=== PATIENT | male | born 1935 | race Caucasian/White ===

== ENCOUNTER → 2016-09-08 | Outpatient (CLI) | payer OTHER, MEDICARE ==
[2013-09-14 09:56] VITALS: BP 126/77
--- NOTE | 2016-09-08 18:47 | RAD ---
HISTORY: Pain Study: AP and lateral views of the thoracic spine Comparison: 03/12/2011 Findings: There is moderate disc space narrowing throughout with large marginal osteophytes throughout. The ve rtebral body height is well maintained throughout. No fracture or subluxation is seen. The pedicles are intact. The bones are well mineralized. IMPRESSION: Moderate multilevel degenerative disc disease which is unchanged with no acute bony abnormality seen . Reported By:
--- NOTE | 2016-09-08 18:51 | RAD ---
HISTORY: Back pain Study: Lumbar spine series Comparison: None Findings: The lumbar vertebra are well aligned. There is moderate disc space narrowing throughout with large m arginal osteophytes throughout. The vertebral body height is well maintained throughout. There are m oderate sclerotic changes of the facets inferiorly. The pedicles are intact. The bones are well mine ralized. There is moderate calcified plaque throughout the aorta with dilatation of the inferior abd ominal aorta measuring up to 5.6 cm. IMPRESSION: Questionable 5-6 cm atherosclerotic fusiform aneurysm of the infrarenal aorta. Recommend ultrasound or CT correlation. Moderate degenerative disk changes throughout and moderate osteoarthritic changes of the facets . Reported By:
== END ==
LOC: RAD 17:58
PROVIDERS: ATTEND Internal Medicine
DX: M54.6 Pain in thoracic spine (principal); M54.5 Low back pain; M51.34 Other intervertebral disc degeneration, thoracic region
CPT/HCPCS: 72072; 72100

== ENCOUNTER 2016-09-09 13:29 | Inpatient (IN) | payer OTHER, MEDICARE ==
[2016-09-09] MEDS ORDERED: LOPRESSOR TAB 25 MG PO SCH (13:44)
[2016-09-09] MEDS ORDERED: NS 1000 ML 1,000 ML IV SCH (14:00)
[2016-09-09 14:15] LABS: BASOPHILS # (AUTO) 0.1 X10^3/uL (0.0-0.1); BASOPHILS % (AUTO) 0.6 % (0.2-1.0); HEMOGLOBIN 15.1 g/dL (13.5-18.0); LYMPHOCYTES % (AUTO) 5.4 % (21.0-51.0); MEAN CORPUSCULAR HEMOGLOBIN 30.8 pg (27.0-34.0); MEAN CORPUSCULAR HGB CONC 33.6 g/dL (33.0-35.0); MEAN CORPUSCULAR VOLUME 91.7 fL (80.0-100.0); MONOCYTES # (AUTO) 0.8 x10^3/uL (0.3-0.8); MONOCYTES % (AUTO) 4.5 % (0.0-13.0); NEUTROPHILS # (AUTO) 16.1 x10^3/uL (2.2-4.8); NEUTROPHILS % (AUTO) 89.5 % (42.0-75.0); PLATELET COUNT 182 X10^3/uL (150.0-450.0); RED BLOOD COUNT 4.91 X10^6/uL (4.7-6.0); RED CELL DISTRIBUTION WIDTH 13.9 % (11.6-16.5)
[2016-09-09 14:17] VITALS: BMI 25.0
[2016-09-09 14:26] LABS: ALANINE AMINOTRANSFERASE 25 Units/L (12-78); ALBUMIN 3.5 g/dL (3.4-5.0); ALKALINE PHOSPHATASE 89 Units/L (46-116); ASPARTATE AMINO TRANSFERASE 22 Units/L (15-37); BLOOD UREA NITROGEN 20 mg/dL (7-18); CALCIUM 8.2 mg/dL (8.5-10.1); CHLORIDE 103 mmol/L (98-107); COR NA(FOR HYPERGLY) 139 mmol/L (136-145); CREATININE 1.27 mg/dL (0.70-1.30); GLUCOSE 143 mg/dL (65-99); SODIUM 138 mmol/L (136-145); eGFR BLACK RACES > 60 (>60); eGFR NON BLACK RACES 58 (>60)
--- NOTE | 2016-09-09 15:26 | DR.H&P ---
H&P - History & Physical for Day of: H&P Date: 09/09/16 - Chief Complaint Chief Complaint: low back pain, radiating - Allergies Allergies/Adverse Reactions: Allergies Allergy/AdvReac Type Severity Reaction Status Date / Time Hydralazine Allergy Verified 09/09/16 13:54 [From [id number]] Hydrochlorothiazide Allergy Verified 09/09/16 13:54 [From [id number]] Reserpine Allergy Verified 09/09/16 13:54 [From [id number]-[id number]] - History of Present Illness History of Present Illness: PT WAS A DIRECT ADMIT PER DR MEJIA WITH NEW FINDING OF AAA >5CM, NEW FINDING. PT CO SUDDEN ONSET OF LOWER BACK PAIN, NO INJURY. PT WAS SEEN IN OFFICE ONE DAY AGO WITH OP XRAYS OF BACK REVEALING ANEURYSM. CT SCAN ORDERED OF ABDOMEN AND PELVIS CONFIRMING, INFRARENAL AA. PT ADMITTED TO ICU FOR BP CONTROL. DR MEJIA COORDINATING TRANSFER. PT HAS PMH GERD. - Past Medical History Past Medical History: GERD Additional Medical History: LONG HX ALCOHOL CONSUMPTION - Past Surgical History Surgical History: Ortho Surgery, Other (RETINA SURGERY) - Family History Family Medical History: Diabetes Mellitus, [place], Sudden Cardiac , Hypertension - Social History Does patient currently use any type of tobacco product: No Have you used tobacco products in the last 12 months: No Type of Tobacco Use: None Does any household member use tobacco: No Alcohol Use: DAILY Drug Use: None - Medications Home Medications: Biotin [Biotin Maximum Strength] 1 tab PO DAILY 09/09/16 [History Confirmed ] Omeprazole [PRILOSEC 20 MG *] 20 mg PO DAILY 09/09/16 [History Confirmed ] - Review of Systems Constitutional: Other (APPEARS IN PAIN) Eyes: No Symptoms Reported ENT: No Symptoms Reported Respiratory: No Symptoms Reported Cardiovascular: No Symptoms Reported Gastrointestinal: Abdominal Pain (MILD RIGHT FLANK PAIN) Genitourinary: No Symptoms Reported Musculoskeletal: Back Pain Skin: No Symptoms Reported Neurological: No Symptoms Reported - Physical Exam Vital Signs: Temperature 99.3 F Pulse Rate [Apical] 67 Respiratory Rate 25 Blood Pressure [Right Arm] 165/86 O2 Sat by Pulse Oximetry 96 Oriented: Normal Eyes: Normal Ear: Normal Nose: Normal Throat: Normal Respiratory: Clear Throughout Cardiovascular: Normal : Normal Auscultation: Bowel Sounds: Normal Palpation: Normal Tenderness: Normal Skin: Normal Musculoskeletal: Back:Thoracic, Back:Lumbar Affect: Anxious Speech Pattern: Clear, Appropriate - Assessment/Plan (1) Aortic aneurysm without rupture Qualifiers: Aortic location: A Status: Acute Plan: ADMIT, ICU, BP CONTROL, BB. CARDIAC MONITORING, CXR. DR MEJIA COORDINATING PLAN FOR CARLENEKINGA (2) GERD (gastroesophageal reflux disease) Qualifiers: Esophagitis presence: E Status: Acute Plan: PROTONIX 40 IV (3) Acute lumbar back pain Qualifiers: Back pain laterality: B Sciatica presence: S Sciatica laterality: S Status: Acute Plan: CT T SPINE AND L SPINE
[2016-09-09 15:38] LABS: BILIRUBIN,URINE NEGATIVE (NEGATIVE); BLOOD/HEMOGLOBIN,URINE 1+ (NEGATIVE); GLUCOSE, URINE NEGATIVE (NEGATIVE); KETONES,URINE NEGATIVE (NEGATIVE); LEUKOCYTE ESTERASE ,URINE NEGATIVE (NEGATIVE); NITRITES,URINE NEGATIVE (NEGATIVE); PROTEIN,URINE NEGATIVE (NEGATIVE); UROBILINOGEN,URINE NORMAL (NORMAL)
[2016-09-09 15:52] LABS: APPEARANCE,URINE CLEAR (CLEAR); BACTERIA,URINE TRACE /HPF (NEGATIVE); COLOR,URINE YELLOW (YELLOW); SQUAMOUS EPITHELIAL CELL,UR NEGATIVE /HPF (NEGATIVE)
[2016-09-09 15:53] LABS: AMORPHOUS SEDIMENT,UR TRACE /HPF (NEGATIVE)
[2016-09-09] MEDS ORDERED: LOPRESSOR TAB 25 MG PO ONE (16:32)
[2016-09-09] MEDS: LOPRESSOR TAB 25 MG PO SCH (20:45)
[2016-09-10] MEDS ORDERED: DILAUDID IM ONE (02:07)
[2016-09-10] MEDS ORDERED: DILAUDID INJ IVP PRN (02:08)
[2016-09-10] MEDS ORDERED: NORCO 7.5/325 MG TAB PO PRN (02:09)
[2016-09-10] MEDS ORDERED: NORVASC TAB 5 MG PO ONE (02:10)
[2016-09-10] MEDS ORDERED: DILAUDID ONE (02:15)
[2016-09-10] MEDS: LOPRESSOR TAB 25 MG PO SCH (08:02)
[2016-09-10 08:18] VITALS: BP 152/93
[2016-09-11] MEDS ORDERED: NORVASC TAB 5 MG PO SCH (09:00)
== END 2016-09-10 08:36 | disposition short-term general hospital (02) | DRG 301 ==
LOC: MERGE 13:29 → ICU 13:29
PROVIDERS: ADMIT Internal Medicine; ATTEND Internal Medicine
DX: I71.4 Abdominal aortic aneurysm, without rupture (principal); M54.5 Low back pain; K21.9 Gastro-esophageal reflux disease without esophagitis
CPT/HCPCS: 36415; 71010; 72128; 72131; 80053; 81001; 85025; 85610; 85730; 93005; 93010; A4222

== ENCOUNTER → 2016-09-09 | Outpatient (CLI) | payer OTHER, MEDICARE ==
[2013-09-14 09:56] VITALS: BP 126/77
[~2016-09-09] MED LIST: NS 100 ML IV 100 ML IV ONE
[2016-09-09 11:10] LABS: CREATININE 1.02 mg/dL (0.70-1.30)
--- NOTE | 2016-09-09 12:28 | CT ---
HISTORY: Abdominal aortic aneurysm Study: CT abdomen pelvis with contrast Comparison: Plain films September 08, 2016 Technique: Axial post-contrast images with coronal and sagittal reformats. Dose reduction procedures were used with MA/kv adjusted for body size. Findings: The lung bases are clear. The liver, spleen, adrenal glands, and pancreas are within normal limits. No opaque stones are visible within the gallbladder. The kidneys are unobstructed and without stones or masses. No ureteral calculi are identified. No significant intraperitoneal or retroperitoneal ly mphadenopathy is identified. There are no findings suggestive of diverticulitis or colitis. There is , however, a fusiform infrarenal abdominal aortic aneurysm that extends over a distance of 8.9 centi meters and demonstrates a maximum AP diameter of 5.3 centimeters and a maximum transverse diameter o f 5.4 centimeters. There is a large amount of thrombus present within the aneurysm which is densely calcified. Be a small chronic dissection in the proximal aspect of the aneurysm. No leak is identifi ed. The origin of the celiac axis is atherosclerotic but patent. The origin of the SMA is atheroscle rotic however just distal to its origin. There is a 1.5 centimeter segmental stenosis likely 50% or greater. The right renal artery is patent. The left renal artery appears patent. The SMA is not iden tified. The right common iliac artery is ectatic but nondilated. There is a 2 centimeter by 2.2 cent imeter aneurysm of the left common iliac artery which extends over a distance of approximately 3.5 c entimeters. There is a 2nd more distal common iliac artery aneurysm demonstrating a maximum diameter of 2.9 centimeters and extending over a distance of 4.3 centimeters. The internal iliac artery is p atent on that side and on the opposite side. No significant skeletal abnormality is identified. IMPRESSION: Fusiform calcified infrarenal abdominal aortic aneurysm extending over a distance of 8.9 centimeters and demonstrating a maximum AP diameter of 5.3 centimeters and a maximum transverse diameter of 5.4 centimeters. 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 More distal left common iliac artery aneurysm extending over a distance of 4.33 centimeters and demo nstrating a maximum diameter of 2.2 centimeters Recommendation: Expedient vascular surgery evaluation. Reported By:
== END ==
LOC: RAD 10:45
PROVIDERS: ATTEND Nurse Practitioner Family
DX: I71.4 Abdominal aortic aneurysm, without rupture (principal)
CPT/HCPCS: 36415; 74177; 82565; 84520; A4222

== ENCOUNTER → 2017-09-14 | Outpatient (CLI) | payer OTHER, MEDICARE ==
--- NOTE | 2017-09-14 14:52 | CT ---
Indication: Previous aneurysm repair with pain Exam: CT abdomen and pelvis without contrast. Technique: Axial spiral images were obtained from lung bases through the pubic symphysis without cont rast. Automated does control was utilized. Comparison: 09/09/2016. Findings: The lung bases are clear. The liver is normal size with a couple of small hypodensities in the right lobe of liver measuring up to 9 mm which are unchanged. The gallbladder, pancreas, and bile ducts are normal. The spleen is unremarkable. The adrenals are normal. There is perirenal scarring a round both kidneys which is unchanged. There is a 6 mm parenchymal calcification along the upper pole on the right with some scarring in the area which is unchanged. There is a 2.6 cm cystic mass along the upper pole on the left which is unchanged. No hydronephrosis is seen. The ureters are normal jimbo halle. There is a fusiform aneurysm of the [place] infrarenal aorta measuring 5.3 cm in the AP dimension which is unchanged . There has been interval placement of an aortobifemoral graft stent in place ext ending into both common iliac arteries which appears in good position . There is no retroperitoneal m ass or adenopathy. There are extensive diverticula along the sigmoid colon with no pericolonic inflam mation. There is diffuse mild dilatation of both iliac arteries with a fusiform aneurysm of the dista l internal iliac artery on the left measuring 3 cm which is unchanged. The prostate gland is moderate ly enlarged but unchanged. The bladder is unremarkable. Moderate degenerative changes are seen in the spine with no aggressive osseous lesion. Impression: Status post placement of an aortobifemoral graft extent within a 5.3 cm fusiform aneurysm of the [place] infrarenal aorta. The aneurysm is grossly unchanged in size with no para-aortic mass or fluid lisa ection. 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 Small hypodensities in the right lobe of liver which probably represent cysts and are unchanged. . Renal scarring around both kidneys and a small left renal cyst with a calcification on the right whalen periorly which is unchanged . No hydronephrosis or urinary obstruction is seen. Moderate diverticulosis of the sigmoid colon with no pericolonic inflammation. Mild prostatic enlargement which is unchanged, recommend clinical follow-up. Reported By:
--- NOTE | 2017-09-14 14:58 | CT ---
Indication: Back pain Exam: CT scan thoracic spine. Technique: Axial spiral images were obtained from T1 through T12 and reconstructed in the axial plane with coronal and sagittal multiplanar reconstructions. Findings: The thoracic vertebra are well aligned. There is moderate disc space narrowing throughout w ith prominent marginal osteophytes throughout. There is a minimal compression deformity of T11 with n o displaced or retropulsed fragment. The posterior elements are intact. There is a small disc osteoph yte complex at T4-5 causing mild dural sac effacement anteriorly. The neural foramina clear throughou t. The paravertebral soft tissues are normal. Impression: Mild compression deformity of T11 which appears chronic. If the patient is focally symptomatic at thi s level, suggest MRI or bone scan correlation. Moderately severe multilevel degenerative disc disease with a small disc osteophyte complex at T4-5. If the patient is persistently symptomatic, suggest MRI correlation. Reported By:
== END | disposition home or self-care (01) | DRG 552 ==
LOC: RAD 13:55
PROVIDERS: ATTEND Nurse Practitioner Family
DX: M54.6 Pain in thoracic spine (principal); Z86.79 Personal history of other diseases of the circulatory system; M43.8X4 Other specified deforming dorsopathies, thoracic region; M51.34 Other intervertebral disc degeneration, thoracic region
CPT/HCPCS: 72128; 74176

== ENCOUNTER 2024-01-06 08:48 | Observation (INO) ==
[2024-01-06 08:59] VITALS: BMI 23.5
--- NOTE | 2024-01-06 09:06 | DR.DIZZY ---
HPI Time seen Time Seen by Provider: 01/06/24 08:58 PCP Primary Care Physician: Yoselyn Complaint Chief Complaint Doctor Comments: 88-year-old male brought in for evaluation. Patient awoke this a.m. with lightheadedness, dizziness. Denies true vertigo. States feels woozy, worse with standing, better with rest. Denies any pain. Specifically no headache, chest pain. Did have some nausea with 1 episode of vomiting. No bowel or bladder issues. No fever, chills, URI symptoms. Chief Complaint:: Patient states that this morning when he got up he was extremely dizzy. He states that he has also been a little nauseated during this time. He states that the room isn't spinning, but he just feels "woozy". COVID-19 Coronavirus risk:travel/contact w/high risk person: No Has patient experienced Coronavirus symptoms: No Nurses Notes Reviewed Nurses Notes Review: Yes Source History Provided: Patient and Family Member Mode of Arrival Mode of Arrival: Wheelchair Timing Onset of Chief Complaint: 01/06/24 Context Stroke Symptoms: Dizziness PMH PMH Past Medical History: Yes Past Medical History: Coronary Artery Disease, Depression, GERD and Hypertension Past Medical History Comment: x8 stents, aneurysm Past Surgical History: Yes Surgical History: Ortho Surgery and Other (RETINA SURGERY) Past Surgical History Comment: x8 stents, aneurysm Family History History of Family Medical Conditions: Yes Family Medical History: Diabetes Mellitus, [place], Sudden Cardiac and Hypertension Social History Does patient currently use any type of tobacco product: No Have you used tobacco products in the last 12 months: No Type of Tobacco Use: None Does any household member use tobacco: No Alcohol Use: Occasionally Do you use any recreational Drugs:: No Lives With: Family Lives Where: Home Travel Risk Coronavirus risk:travel/contact w/high risk person: No Has patient experienced Coronavirus symptoms: No Infectious screening In the last 2 months have you had wt loss of >10#?: NO Have you had fever, night sweats or hemotysis?: No Have you traveled outside the country in the last 6 months?: No Isolation: Standard ROS Review of Systems Constitutional: Weakness Eyes: No Symptoms Reported ENTM: No Symptoms Reported Respiratoy: No Symptoms Reported Cardiovascular: No Symptoms Reported Gastrointestinal/Abdominal: Nausea and Vomiting Genitourinary: No Symptoms Reported Neurological: Dizziness Musculoskeletal: No Symptoms Reported Integumentary: No Symptoms Reported Hematologic/Lymphatic: No Symptoms Reported Psychiatric: No Symptoms Reported All Other Systems: Reviewed and Negative PE Vital Signs Vitals: Vital Signs Temperature 97.9 F Pulse Rate 74 Pulse Rate 62 Pulse Rate 71 Pulse Rate 71 Pulse Rate 68 Pulse Rate 80 Pulse Rate 77 Pulse Rate 56 Pulse Rate 57 Pulse Rate 51 Pulse Rate 50 Pulse Rate 61 Pulse Rate 60 Pulse Rate 54 Pulse Rate 54 Pulse Rate 56 Pulse Rate 53 Pulse Rate 55 Pulse Rate 57 Pulse Rate 58 Pulse Rate 60 Respiratory Rate 34 Respiratory Rate 16 Respiratory Rate 22 Respiratory Rate 30 Respiratory Rate 26 Respiratory Rate 25 Respiratory Rate 29 Respiratory Rate 19 Respiratory Rate 21 Respiratory Rate 18 Respiratory Rate 19 Respiratory Rate 13 Respiratory Rate 18 Respiratory Rate 19 Respiratory Rate 19 Respiratory Rate 24 Respiratory Rate 20 Respiratory Rate 20 Respiratory Rate 19 Respiratory Rate 7 Respiratory Rate 18 Blood Pressure 126/62 Blood Pressure 138/63 Blood Pressure 142/69 Blood Pressure 129/61 Blood Pressure 125/58 Blood Pressure 128/62 O2 Sat by Pulse Oximetry 98 O2 Sat by Pulse Oximetry 98 O2 Sat by Pulse Oximetry 99 O2 Sat by Pulse Oximetry 99 O2 Sat by Pulse Oximetry 99 O2 Sat by Pulse Oximetry 99 O2 Sat by Pulse Oximetry 100 O2 Sat by Pulse Oximetry 95 General General Appearance: Alert and In No Apparent Distress Eyes Eye exam: PERRL and EOMI ENT ENT Exam: Normal Oropharynx and Mucous Membranes Moist Chest Chest Inspection: Normal Inspection Respiratory Respiratory Exam: Normal Lung Sounds Bilat; negative Accessory Muscle Use or Re spiratory Distress Cardiovascular Cardiovascular Exam: Regular Rate, Normal Rhythm and Normal Heart Sounds Abdominal Exam Abdominal Exam: Normal Bowel Sounds and Soft; negative Tenderness Extremeties Extremities Exam: Normal Inspection and Full ROM; negative Edema Neurologic Neurological Exam: Alert, Oriented X3 and CN II-XII Intact; negative Motor Sensory Deficit Skin Skin Exam: Warm and Dry COURSE Treatment Treatment: 88-year-old male with dizziness this a.m. Denies vertigo. Did have an episode of nausea and vomiting as well. Physical exam is benign. Patient denies pain. Workup initiated. Patient given IV fluids, IV Zofran. Labs overall acceptable. Pt ambulated by nurses, + unsteady on feet. Will pursue brain CT, repeat troponin. CXR -has bilateral increased markings in the lower lobes, more consistent with fibrotic changes. Radiologist read a history of pn eumonia in the appropriate clinical setting. Patient has not been coughing, no fever, no shortness of breath.Will cover with rocephin. 1334 -Overall unremarkable. Has a normal CBC, normal CMP. There is slight renal insufficiency, possible degree of volume depletion. Urinalysis is acceptable. Initial troponin normal at 13.5, repeat 2-hour troponin minimally higher at 15.1. CT of the brain with chronic changes nothing acute. He was negative for COVID. Discussed with his attending, Dr. Cid. Will admit for observation. Continue cautious IV fluids, will continue Rocephin for possible pneumonia though I do not believe this is the case. Consider MRI tomorrow to further evaluate the brain for possible mild stroke. ROR Labs Reviewed Laboratory Results Reviewed?: Yes 01/06/24 09:23 01/06/24 09:23 Laboratory: WBC 9.9 X10^3/uL (3.6-10.0) 01/06/24 09:23 RBC 4.21 X10^6/uL (4.7-6.0) L 01/06/24 09:23 Hgb 13.0 g/dL (13.5-18.0) L 01/06/24 09:23 Hct 38.8 % (42.0-54.0) L 01/06/24 09:23 MCV 92.4 fL (80.0-100.0) 01/06/24 09:23 MCH 31.0 pg (27.0-34.0) 01/06/24 09: MCHC 33.5 g/dL (33.0-35.0) 01/06/24 09: RDW 13.9 % (11.6-16.5) 01/06/24 09:23 Plt Count 234 X10^3/uL (150.0-450.0) 01/06/24 09:23 MPV 8.8 fL (7.4-11.0) 01/06/24 09:23 Neut % (Auto) 68.6 % (42.0-75.0) 01/06/24 09:23 Lymph % (Auto) 15.4 % (21.0-51.0) L 01/06/24 09:23 Davis % (Auto) 10.1 % (0.0-13.0) 01/06/24 09:23 Eos % (Auto) 5.0 % (0.9-2.9) H 01/06/24 09:23 Baso % (Auto) 0.9 % (0.2-1.0) 01/06/24 09:23 Neut # (Auto) 6.8 x10^3/uL (2.2-4.8) H 01/06/24 09:23 Lymph # (Auto) 1.5 X10^3/uL (1.3-2.9) 01/06/24 09:23 Davis # (Auto) 1.0 x10^3/uL (0.3-0.8) H 01/06/24 09:23 Eos # (Auto) 0.5 x10^3/uL (0.0-0.2) H 01/06/24 09:23 Baso # (Auto) 0.1 X10^3/uL (0.0-0.1) 01/06/24 09:23 Absolute Nucleated RBC 0.0 /100WBC 01/06/24 09:23 Sodium 135 mmol/L (136-145) L 01/06/24 09:23 Corrected Sodium TNP 01/06/24 09:23 Potassium 3.4 mmol/L (3.5-5.1) L 01/06/24 09:23 Chloride 99 mmol/L (98-107) 01/06/24 09:23 Carbon Dioxide 30.5 mmol/L (21-32) 01/06/24 09:23 BUN 35 mg/dL (7-18) H 01/06/24 09:23 Creatinine 1.70 mg/dL (0.70-1.30) H 01/06/24 09:23 Est GFR (MDRD) Af Amer 49 (>60) L 01/06/24 09:23 Est GFR (MDRD) Non-Af 41 (>60) L 01/06/24 09:23 Glucose 105 mg/dL (65-99) H 01/06/24 09:23 Calcium 8.6 mg/dL (8.5-10.1) 01/06/24 09:23 Corrected Calcium 9.4 mg/dL (8.5-10.1) 01/06/24 09:23 Total Bilirubin 0.50 mg/dL (0.2-1.0) 01/06/24 09:23 AST 17 Units/L (15-37) 01/06/24 09:23 ALT 10 Units/L (12-78) L 01/06/24 09:23 Alkaline Phosphatase 97 Units/L (46-116) 01/06/24 09:23 Creatine Kinase 53 Units/L (39-308) 01/06/24 09:23 Troponin I High Sens 15.1 ng/L (4.0-60.0) 01/06/24 11:31 Total Protein 6.5 g/dL (6.4-8.2) 01/06/24 09:23 Albumin 3.0 g/dL (3.4-5.0) L 01/06/24 09:23 Globulin 3.5 g/dL (2.5-4.5) 01/06/24 09:23 Albumin/Globulin Ratio 0.9 Ratio (1.1-2.1) L 01/06/24 09:23 Specimen Type Clean catch urine 01/06/24 09:33 Urine Color Yellow (YELLOW) 01/06/24 09:33 Urine Appearance Clear (CLEAR) 01/06/24 09:33 Urine pH 7.0 (5.0 - 8.0) 01/06/24 09:33 Ur Specific [place] 1.010 (1.000-1.030) 01/06/24 09:33 Urine Protein Negative (NEGATIVE) 01/06/24 09:33 Urine Glucose (UA) Negative (NEGATIVE) 01/06/24 09:33 Urine Ketones Negative (NEGATIVE) 01/06/24 09:33 Urine Blood 1+ (NEGATIVE) 01/06/24 09: Urine Nitrite Negative (NEGATIVE) 01/06/24 09:33 Urine Bilirubin Negative (NEGATIVE) 01/06/24 09:33 Urine Urobilinogen Normal (NORMAL) 01/06/24 09:33 Ur Leukocyte Esterase 1+ (NEGATIVE) 01/06/24 09:33 Urine RBC 0-2 /HPF (0-3) 01/06/24 09:33 Urine WBC 0-2 /HPF (0-5) 01/06/24 09:33 Ur Squamous Epith Cells Rare /HPF (NEGATIVE) 01/06/24 09:33 Urine Bacteria Trace /HPF (NEGATIVE) 01/06/24 09:33 Ur Culture Indicated? No/not indicated 01/06/24 09:33 SARS CoV-2 RNA Rapid MORRIS Negative (NEGATIVE) 01/06/24 09:30 Labs acceptable XRAY XRAY Interpreted by: Both X-ray Results: EXAM: CHEST, 1 VIEW HISTORY: DIZZINESS; COMPARISON: No relevant prior studies were available for comparison at the time of interpretation. TECHNIQUE: CHEST, 1 VIEW FINDINGS: Chest: Lines and tubes: Cardiac leads overlie the chest. Mediastinum: Borderline cardiomegaly. Pulmonary vessels: No pulmonary vascular congestion. Lung carranza: Patchy opacities are seen in both bases Pleura: No effusion. No pneumothorax. Bones and soft tissues: No acute osseous or soft tissue abnormality. IMPRESSION: 1. She bibasilar opacities may indicate pneumonia in the proper clinical setting. THIS IS AN ELECTRONICALLY VERIFIED FINAL REPORT 01/06/2024 9:53 AM - Electronically signed by Kenan Fuller MD EKG Rate: 60 [place]: Normal Rhythm: NSR Block: LBBB ST: Nonsp Opioid Opioid Risk Tool Age (Mauri box if 16-45): No History of Preadolescent Sexual Abuse: No Total: 0 Total Score Risk Category: Low Risk Copyright: Ruben REYNOLDS predicting aberrant behaviors Discharge Plan Diagnosis Discharge Problem: Dizziness, Unsteady gait Discharge Plan Patient Disposition: ADMITTED INPATIENT Condition: Stable
[2024-01-06] MEDS: ZOFRAN INJ 4 MG VIAL IVP ONE (09:21)
[2024-01-06] MEDS: NS 500 ML IV 500 ML IV ONE (09:21)
--- NOTE | 2024-01-06 09:30 | EKG ---
Test Reason : dizziness Blood Pressure : */* mmHG Vent. Rate : 60 BPM Atrial Rate : 61 BPM P-R Int : 174 ms QRS Dur : 168 ms QT Int : 468 ms P-R-T Axes : 106 0 184 degrees QTc Int : 468 ms Normal sinus rhythm with sinus arrhythmia Left bundle branch block Abnormal ECG No previous ECGs available Confirmed by Saul Tee ([id number]) on 01/07/2024 8:46:30 AM Referred By: Confirmed By: aSul Tee
[2024-01-06 09:35] LABS: BASOPHILS # (AUTO) 0.1 X10^3/uL (0.0-0.1); BASOPHILS % (AUTO) 0.9 % (0.2-1.0); EOSINOPHILS # (AUTO) 0.5 x10^3/uL (0.0-0.2); HEMATOCRIT 38.8 % (42.0-54.0); LYMPHOCYTES # (AUTO) 1.5 X10^3/uL (1.3-2.9); LYMPHOCYTES % (AUTO) 15.4 % (21.0-51.0); MEAN CORPUSCULAR HGB CONC 33.5 g/dL (33.0-35.0); MEAN CORPUSCULAR VOLUME 92.4 fL (80.0-100.0); MEAN PLATELET VOLUME 8.8 fL (7.4-11.0); MONOCYTES % (AUTO) 10.1 % (0.0-13.0); NEUTROPHILS # (AUTO) 6.8 x10^3/uL (2.2-4.8); NEUTROPHILS % (AUTO) 68.6 % (42.0-75.0); PLATELET COUNT 234 X10^3/uL (150.0-450.0); RED BLOOD COUNT 4.21 X10^6/uL (4.7-6.0); RED CELL DISTRIBUTION WIDTH 13.9 % (11.6-16.5); WHITE BLOOD COUNT 9.9 X10^3/uL (3.6-10.0)
[2024-01-06 09:44] LABS: ALANINE AMINOTRANSFERASE 10 Units/L (12-78); ALKALINE PHOSPHATASE 97 Units/L (46-116); ASPARTATE AMINO TRANSFERASE 17 Units/L (15-37); BLOOD UREA NITROGEN 35 mg/dL (7-18); CALCIUM 8.6 mg/dL (8.5-10.1); CARBON DIOXIDE 30.5 mmol/L (21-32); CHLORIDE 99 mmol/L (98-107); COR CA(FOR HYPOALB) 9.4 mg/dL (8.5-10.1); CREATINE KINASE 53 Units/L (39-308); GLUCOSE 105 mg/dL (65-99); POTASSIUM 3.4 mmol/L (3.5-5.1); SODIUM 135 mmol/L (136-145); TOTAL PROTEIN 6.5 g/dL (6.4-8.2); eGFR NON BLACK RACES 41 (>60)
[2024-01-06 09:45] LABS: BILIRUBIN,URINE NEGATIVE (NEGATIVE); BLOOD/HEMOGLOBIN,URINE 1+ (NEGATIVE); GLUCOSE, URINE NEGATIVE (NEGATIVE); KETONES,URINE NEGATIVE (NEGATIVE); LEUKOCYTE ESTERASE ,URINE 1+ (NEGATIVE); NITRITES,URINE NEGATIVE (NEGATIVE); PROTEIN,URINE NEGATIVE (NEGATIVE); UROBILINOGEN,URINE NORMAL (NORMAL)
--- NOTE | 2024-01-06 09:56 | RAD ---
EXAM:CHEST, 1 VIEWHISTORY:DIZZINESS;COMPARISON:No relevant prior studies were available for comparison at the time of interpretation.TECHNIQUE:CHEST, 1 VIEWFINDINGS:Chest:Lines and tubes: Cardiac leads overlie the chest.Mediastinum: Borderline cardiomegaly.Pulmonary vessels: No pulmonary vascular congestion.Lung carranza: Patchy opacities are seen in both basesPleura: No effusion. No pneumothorax.Bones and soft tissues: No acute osseous or soft tissue abnormality.IMPRESSION:1. She bibasilar opacities may indicate pneumonia in the proper clinical setting.THIS IS AN ELECTRONICALLY VERIFIED FINAL REPORT01/06/2024 9:53 AM - Electronically signed by Kenan Fuller MD
[2024-01-06 09:57] LABS: APPEARANCE,URINE CLEAR (CLEAR); BACTERIA,URINE TRACE /HPF (NEGATIVE); COLOR,URINE YELLOW (YELLOW); RBC,URINE 0-2 /HPF (0-3); SQUAMOUS EPITHELIAL CELL,UR RARE /HPF (NEGATIVE)
[2024-01-06] MEDS: ROCEPHIN VIAL 1 GRAM IVP ONE (11:35)
--- NOTE | 2024-01-06 12:02 | CT ---
EXAM:BRAIN W/O CONHISTORY:DIZZINESS;COMPARISON:No relevant prior studies were available for comparison at the time of interpretation..TECHNIQUE:CT images were obtained. Multiplanar reconstructions were created on a separate workstation and used during interpretation. All CT scans at this facility is dose modulation, iterative reconstruction, and/or weight-based dosing as appropriate to reduce radiation to levels as low as reasonably achievable (ALARA). Postprocessing details, radiation dose, and contrast dose (if applicable) are recorded in the patient's medical record.FINDINGS:Head:Acute findings: There is no intracranial hemorrhage. No mass effect. No intra-axial or extra-axial fluid collection. There is no mass. No tentorial, uncal, or tonsillar herniation.Brain volume and white matter: There is diffuse cortical atrophy. There is hypoattenuation in the supratentorial white matter consistent with chronic microvascular ischemic disease.Ventricles: No hydrocephalusMidline structures: Pituitary gland and corpus callosum are normal.Posterior fossa and skull base: Cerebellum and posterior fossa are within normal limits. Basal cisterns are not effaced.Sinuses and mastoids: Paranasal sinuses and mastoid air cells are predominantly clear.Globes and Orbits: Bilateral lens implants. Globes are intact. Bony orbits are intact. Extraocular muscles and retrobulbar fat appear normal.Skull and soft tissues: No depressed skull fracture. Calvarium appears intact. No scalp injury is identified.IMPRESSION:1. No acute intracranial abnormalityTHIS IS AN ELECTRONICALLY VERIFIED FINAL REPORT01/06/2024 11:59 AM - Electronically signed by Kenan Fuller MD
[2024-01-06] MEDS ORDERED: CONSULT PHARMACY - POTASSIUM & MAGNESIUM XX SCH (14:26)
[2024-01-06] MEDS: K-DUR TAB 20 MEQ PO NR (14:56)
[2024-01-06] MEDS: LR 1,000 ML IV 1,000 ML IV SCH (14:56)
[2024-01-06] MEDS: ROCEPHIN VIAL 1 GRAM 1 G in NS 100 ML IV 100 ML IV SCH (14:56)
[2024-01-06] MEDS: DUONEB 0.5 MG/3 MG (3 mL) NEB SCH (17:05)
[2024-01-06] MEDS ORDERED: PULMICORT NEB TX 0.5 MG NEB ONE (19:00)
[2024-01-06] MEDS: PULMICORT NEB TX 0.5 MG NEB SCH (20:49)
[2024-01-07 06:37] LABS: BASOPHILS # (AUTO) 0.1 X10^3/uL (0.0-0.1); BASOPHILS % (AUTO) 0.9 % (0.2-1.0); EOSINOPHILS # (AUTO) 0.5 x10^3/uL (0.0-0.2); EOSINOPHILS % (AUTO) 5.2 % (0.9-2.9); HEMATOCRIT 36.4 % (42.0-54.0); HEMOGLOBIN 12.2 g/dL (13.5-18.0); LYMPHOCYTES # (AUTO) 1.6 X10^3/uL (1.3-2.9); LYMPHOCYTES % (AUTO) 17.6 % (21.0-51.0); MEAN CORPUSCULAR HEMOGLOBIN 30.9 pg (27.0-34.0); MEAN CORPUSCULAR HGB CONC 33.6 g/dL (33.0-35.0); MEAN PLATELET VOLUME 9.5 fL (7.4-11.0); MONOCYTES % (AUTO) 11.7 % (0.0-13.0); NEUTROPHILS # (AUTO) 5.8 x10^3/uL (2.2-4.8); NEUTROPHILS % (AUTO) 64.6 % (42.0-75.0); PLATELET COUNT 230 X10^3/uL (150.0-450.0); RED BLOOD COUNT 3.96 X10^6/uL (4.7-6.0); RED CELL DISTRIBUTION WIDTH 13.8 % (11.6-16.5); WHITE BLOOD COUNT 8.9 X10^3/uL (3.6-10.0)
[2024-01-07 07:00] LABS: ALANINE AMINOTRANSFERASE 10 Units/L (12-78); ALBUMIN 2.6 g/dL (3.4-5.0); ALKALINE PHOSPHATASE 84 Units/L (46-116); ASPARTATE AMINO TRANSFERASE 13 Units/L (15-37); BLOOD UREA NITROGEN 31 mg/dL (7-18); CALCIUM 8.3 mg/dL (8.5-10.1); CARBON DIOXIDE 30.1 mmol/L (21-32); CHLORIDE 101 mmol/L (98-107); COR CA(FOR HYPOALB) 9.4 mg/dL (8.5-10.1); CREATININE 1.61 mg/dL (0.70-1.30); GLUCOSE 94 mg/dL (65-99); MAGNESIUM 1.7 mg/dL (2.0-2.9); POTASSIUM 3.5 mmol/L (3.5-5.1); SODIUM 138 mmol/L (136-145); eGFR NON BLACK RACES 43 (>60)
[2024-01-07 08:28] VITALS: RESP 19
[2024-01-07] MEDS ORDERED: NS 1,000 ML IV 1,000 ML IV SCH (09:00)
[2024-01-07] MEDS ORDERED: CONSULT PHARMACY - POTASSIUM & MAGNESIUM XX SCH (09:00)
[2024-01-07] MEDS: DUONEB 0.5 MG/3 MG (3 mL) NEB SCH (09:02)
[2024-01-07] MEDS: HYZAAR 50/12.5 MG PO SCH (09:05)
[2024-01-07] MEDS: ROBITUSSIN DM PO SCH (09:05)
[2024-01-07] MEDS: LASIX PO SCH (09:06)
[2024-01-07 09:14] LABS: ABG BASE EXCESS 4.4 mmol/L (-2.0-2.0); ABG HCO3 28.4 mmol/L (22-26)
[2024-01-07] MEDS: FARXIGA PO SCH (09:24)
[2024-01-07] MEDS: NS + KCL 20 MEQ/L 1,000 ML IV SCH (09:32)
[2024-01-07] MEDS: LOVENOX INJ 40 MG SYR SC SCH (09:52)
[2024-01-07] MEDS: ZITHROMAX TAB 250 MG PO ONE (09:52)
[2024-01-07 09:53] VITALS: O2SAT 98
[2024-01-07] MEDS: MAG-OX TAB PO SCH (11:05)
--- NOTE | 2024-01-07 11:05 | CT ---
EXAM: CHEST W/O CON HISTORY: PNEUMONIA, CHF; COMPARISON: No relevant prior studies were available for comparison at the time of interpretation.. TECHNIQUE: CT images were obtained. Multiplanar reconstructions were created on a separate workstation and used during interpretation. All CT scans at this facility is dose modulation, iterative reconstruction, an d/or weight-based dosing as appropriate to reduce radiation to levels as low as reasonably achievable (ALARA). Postprocessing details, radiation dose, and contrast dose (if applicable) are recorded in t he patient's medical record. 3D maximum intensity projection images were obtained and evaluated. FINDINGS: Lower Neck: No acute soft tissue abnormality. No actionable thyroid nodule. Lymph nodes: No visualized cervical, supraclavicular, axillary, mediastinal, or hilar adenopathy Upper abdomen: No acute abnormality identified in the visualized upper abdomen. Aortic endograft pro ximal portion is visualized Cardiomediastinum: No acute cardiac abnormality. Coronary stents are present. Vascular: Thoracic aortic ectasia. No pulmonary artery dilation. Lungs: Bilateral dependent atelectasis. Trace left pleural effusion. No suspicious airspace opacity , mass, or nodule. No evidence of traumatic injury. . No pneumothorax Osseous structures: No acute osseous abnormality. No destructive osseous lesion. IMPRESSION: 1. Trace left pleural effusion of uncertain etiology. 2. Thoracic aortic ectasia. 3. Otherwise unremarkable exam THIS IS AN ELECTRONICALLY VERIFIED FINAL REPORT 01/07/2024 11:02 AM - Electronically signed by Kenan Fuller MD
[2024-01-07 13:01] VITALS: BP 125/59; PULSE 62; TEMP 97.7
== END 2024-01-07 13:20 | disposition home or self-care (01) ==
LOC: ER 08:48 → MED/SURG 08:48
PROVIDERS: ADMIT Internal Medicine; ATTEND Internal Medicine
DX: K21.9 Gastro-esophageal reflux disease without esophagitis; I25.10 Atherosclerotic heart disease of native coronary artery without angina pectoris; Z66 Do not resuscitate; R42 Dizziness and giddiness; R94.31 Abnormal electrocardiogram [ECG] [EKG]; I77.810 Thoracic aortic ectasia; E87.6 Hypokalemia; J06.9 Acute upper respiratory infection, unspecified; N40.0 Benign prostatic hyperplasia without lower urinary tract symptoms; N18.9 Chronic kidney disease, unspecified; I12.9 Hypertensive chronic kidney disease with stage 1 through stage 4 chronic kidney disease, or unspecified chronic kidney disease; R26.81 Unsteadiness on feet; N28.89 Other specified disorders of kidney and ureter; E83.42 Hypomagnesemia; J90 Pleural effusion, not elsewhere classified; Z20.822 Contact with and (suspected) exposure to COVID-19; E87.1 Hypo-osmolality and hyponatremia